=== PATIENT | male | born 1970 | race Caucasian/White ===

== ENCOUNTER → 2017-08-20 | Outpatient (REF) | payer OTHER ==
[~2017-08-20] MED LIST: ACET50TA PO; ASPI81CH PO; DRISDOL PO; METO50TA4 PO; NO HISTORICAL MEDS; OXYC30TA4 PO; PERC7.5T12 PO; PRIN10TA PO; SPIR25TA2 PO; SYNT100T PO; TYLE325T5 PO
== END ==
LOC: M SFHCCLAY 09:55
PROVIDERS: ATTEND Family Medicine
DX: J02.9 Acute pharyngitis, unspecified (principal)

== ENCOUNTER → 2018-06-19 | Outpatient (REF) | payer OTHER ==
[2018-06-19 12:04] LABS: ANION GAP 6 MEQ/L (8-16); BLOOD UREA NITROGEN 12 MG/DL (7-18); CALCIUM LEVEL 8.7 MG/DL (8.5-10.1); CARBON DIOXIDE LEVEL 28 MEQ/L (21-32); CHLORIDE LEVEL 106 MEQ/L (98-107); CREATININE FOR GFR 1.05 MG/DL (0.70-1.30); GLOMERULAR FILTRATION RATE > 60.0 (>60); GLUCOSE, FASTING 93 MG/DL (70-100); POTASSIUM SERUM 4.6 MEQ/L (3.5-5.1); SODIUM LEVEL 140 MEQ/L (136-145)
== END ==
LOC: M SFHCCLAY 08:07
DX: I10 Essential (primary) hypertension (principal)

== ENCOUNTER → 2019-07-14 | Outpatient (CLI) | payer MEDICAID ==
[~2019-07-14] MED LIST changes: -ACET50TA PO; +MAPA500T17 PO
--- NOTE | 2019-07-14 16:14 | REP ---
Chest x-ray: Two views. History: Cough. Chest pain. Low oxygen saturation. Comparison chest x-ray August 20, 2013. Findings: The lungs are symmetrically aerated and clear. Pleural angles are sharp. Right hemidiaphragm is slightly elevated unchanged. Heart is not enlarged. There are degenerative changes in the thoracic spine. Impression: No acute disease. Electronically Signed by Berto Esquivel MD 07/14/2019 04:06 P
== END ==
LOC: M CLY 15:35
PROVIDERS: ATTEND Family Medicine
DX: M51.34 Other intervertebral disc degeneration, thoracic region (principal); R05 Cough; R79.81 Abnormal blood-gas level; R07.1 Chest pain on breathing

== ENCOUNTER → 2019-08-06 | Outpatient (REF) | payer MEDICAID ==
[2019-08-06 12:18] LABS: ALBUMIN 3.9 GM/DL (3.2-5.2); ALT/SGPT 66 U/L (12-78); BILIRUBIN,TOTAL 0.4 MG/DL (0.2-1.0); BLOOD UREA NITROGEN 17 MG/DL (7-18); CARBON DIOXIDE LEVEL 28 MEQ/L (21-32); CHLORIDE LEVEL 108 MEQ/L (98-107); CHOLESTEROL LEVEL 185 MG/DL (<200); CHOLESTEROL RISK RATIO 3.627 (<5); CREATININE FOR GFR 1.07 MG/DL (0.70-1.30); GLOMERULAR FILTRATION RATE > 60.0 (>60); GLUCOSE, FASTING 93 MG/DL (70-100); HDL CHOLESTEROL 51 MG/DL (>40); LDL CHOLESTEROL 121 MG/DL (<100); NON-HDL-C 134 MG/DL; POTASSIUM SERUM 4.7 MEQ/L (3.5-5.1); SODIUM LEVEL 140 MEQ/L (136-145); TOTAL PROTEIN 6.9 GM/DL (6.4-8.2); TRIGLYCERIDES LEVEL 67 MG/DL (<150)
== END ==
LOC: M SFHCCLAY 07:31
PROVIDERS: ATTEND Family Medicine
DX: Z00.00 Encounter for general adult medical examination without abnormal findings (principal); I11.9 Hypertensive heart disease without heart failure; Z13.220 Encounter for screening for lipoid disorders; Z13.1 Encounter for screening for diabetes mellitus

== ENCOUNTER → 2022-11-14 | Outpatient (CLI) | payer OTHER | LOC: M CLY 11:14 | PROVIDERS: ATTEND Nurse Practitioner Family | DX: M54.50 Low back pain, unspecified (principal) ==

== ENCOUNTER → 2022-11-14 | Outpatient (REF) | payer OTHER ==
[2022-11-14 19:15] LABS: THYROID STIMULATING HORMONE 0.699 uIU/ML (0.55-4.78)
[2022-11-14 19:16] LABS: BLOOD UREA NITROGEN 17 MG/DL (9-23); CALCIUM LEVEL 9.3 MG/DL (8.5-10.1); CARBON DIOXIDE LEVEL 29 MMOL/L (20-31); CHLORIDE LEVEL 103 MMOL/L (98-107); CHOLESTEROL LEVEL 191 MG/DL (<200); CHOLESTEROL RISK RATIO 3.68 (<5); CREATININE FOR GFR 0.99 MG/DL (0.70-1.30); FREE T4 1.28 NG/DL (0.89-1.76); GLOMERULAR FILTRATION RATE > 60.0 (>56); GLUCOSE, FASTING 76 MG/DL (60-100); HDL CHOLESTEROL 51.8 MG/DL (>40); LDL CHOLESTEROL 110.8 MG/DL (<100); NON-HDL-C 139 MG/DL; POTASSIUM SERUM 4.6 MMOL/L (3.5-5.1); SODIUM LEVEL 139 MMOL/L (136-145); TRIGLYCERIDES LEVEL 142 MG/DL (<150)
== END ==
LOC: M SFHCCLAY 11:01
PROVIDERS: ATTEND Nurse Practitioner Family
DX: I10 Essential (primary) hypertension (principal); F32.9 Major depressive disorder, single episode, unspecified

== ENCOUNTER → 2024-08-14 | Outpatient (CLI) | payer SELFPAY | LOC: M CLY 09:23 | PROVIDERS: ATTEND Physician Assistant | DX: R06.02 Shortness of breath (principal) ==

== ENCOUNTER → 2024-11-28 | Outpatient (CLI) | payer MEDICAID | LOC: M OUTALCOH 07:57 | PROVIDERS: ATTEND Psychiatry & Neurology Psychiatry | DX: F10.10 Alcohol abuse, uncomplicated (principal) ==

== ENCOUNTER 2024-12-03 16:05 | Outpatient (RCR) | payer MEDICAID | END 2024-12-08 | LOC: M OUTALCOH 16:05 | PROVIDERS: ATTEND Psychiatry & Neurology Psychiatry | DX: F10.10 Alcohol abuse, uncomplicated (principal) ==

== ENCOUNTER 2025-01-01 15:00 | Outpatient (RCR) | payer MEDICAID | END 2025-01-07 | LOC: M OUTALCOH 15:00 | PROVIDERS: ATTEND Psychiatry & Neurology Psychiatry | DX: F10.10 Alcohol abuse, uncomplicated (principal) ==

== ENCOUNTER 2025-06-19 15:26 | Emergency (ER) | payer OTHER ==
[~2025-06-19] VITALS: Ht 182.9 cm; Wt 101.8 kg
[2025-06-19] MEDS ORDERED: OMEP40CA5 (15:36)
[2025-06-19] MEDS ORDERED: LISI10TA22 (15:36)
[2025-06-19] MEDS ORDERED: KAOP262S PO (15:43)
[2025-06-19 16:12] LABS: BASO # 0.0 10^3/uL (0.0-0.2); BASO % 0.5 % (0.0-1.0); EOS # 0.0 10^3/uL (0.0-0.5); EOS % 0.3 % (0.0-3.0); LYMPH # 1.6 10^3/uL (1.5-5.0); LYMPH % 26.2 % (24.0-44.0); MONO # 0.5 10^3/uL (0.0-0.8); MONO % 8.1 % (2.0-8.0); NEUTROPHILS # 4.0 10^3/uL (1.5-8.5); NEUTROPHILS % 64.7 % (36.0-66.0); PLATELET COUNT, AUTOMATED 303 10^3/uL (150-450)
[2025-06-19] MEDS ORDERED: ONDANSETRON 4MG 2ML VIAL IV ONE (16:25)
[2025-06-19 16:47] LABS: CK-MB VALUE MASS 7.1 NG/ML (<3.6)
[2025-06-19] MEDS: SODIUM CHLORIDE 0.9% 1000 ML IV SCH (16:48)
[2025-06-19 16:49] LABS: ALT/SGPT 79.0 U/L (7.0-40); AST/SGOT 45.0 U/L (<34)
[2025-06-19 16:51] LABS: CPK CREATINE PHOSPHOKINASE 316.0 U/L (46-171); MB/CK RELATIVE INDEX 2.24 (< OR =4)
[2025-06-19] MEDS: FAMOTIDINE 20 MG/2 ML VIAL IVP ONE (16:51)
[2025-06-19 17:15] LABS: INR 1.19
[2025-06-19 17:18] LABS: KETONE, URINE AUTO RFX NEGATIVE (NEGATIVE); LEUKOCYTE ESTERASE UR AUTO RFX NEGATIVE (NEGATIVE); NITRITE, URINE AUTO RFX NEGATIVE (NEGATIVE); RBC, URINE AUTO RFX 0 /HPF (0-3); SQUAM EPITHELIAL CELL UR AURFX 0 /HPF (0-6); WBC, URINE AUTO RFX 1 /HPF (0-3)
[2025-06-19] MEDS ORDERED: ISOVUE-370 76% 100 ML VIAL As Ordered ONE (17:23)
[2025-06-19 17:54] LABS: CK-MB VALUE MASS 6.4 NG/ML (<3.6)
[2025-06-19 17:55] LABS: CPK CREATINE PHOSPHOKINASE 298.0 U/L (46-171); MB/CK RELATIVE INDEX 2.14 (< OR =4)
[2025-06-19] MEDS: ACETAMINOPHEN *IV* 1,000 MG in IV 1 EA IV ONE (18:40)
[2025-06-19] MEDS ORDERED: SIMETHICONE 80MG CHEW TAB PO SCH (19:20)
[2025-06-19] MEDS: SIMETHICONE 80MG CHEW TAB PO ONE (19:58)
[2025-06-19] MEDS: DICYCLOMINE INJ 20 MG/2 ML IM ONE (20:48)
[2025-06-19] MEDS: MAALOX 30 ML SUSP *UDC PO ONE (20:48)
[2025-06-19] MEDS: LIDOCAINE VISCOUS 2% SOLN 15 ML UDC PO ONE (20:48)
[2025-06-19] MEDS: HYOSCYAMINE SULFATE 0.125 MG SUBL TABLET PO ONE (20:49)
[2025-06-19 20:51] LABS: CK-MB VALUE MASS 5.0 NG/ML (<3.6)
[2025-06-19 20:55] LABS: CPK CREATINE PHOSPHOKINASE 250.0 U/L (46-171); MB/CK RELATIVE INDEX 2.0 (< OR =4)
[2025-06-19 21:01] VITALS: BP 129/93
[2025-06-19 21:15] VITALS: O2SAT 97
[2025-06-19] MEDS ORDERED: DICY1CAP8 PO (21:15)
[2025-06-19 21:30] VITALS: TEMP 97.2
== END 2025-06-19 21:39 | disposition home or self-care (01) ==
LOC: M ED 15:26
DX: R74.01 Elevation of levels of liver transaminase levels (principal); K29.70 Gastritis, unspecified, without bleeding; I10 Essential (primary) hypertension; R94.31 Abnormal electrocardiogram [ECG] [EKG]; K57.30 Diverticulosis of large intestine without perforation or abscess without bleeding; Z79.899 Other long term (current) drug therapy
CPT/HCPCS: 71045; 74174; 80047; 80076; 81001; 82550; 82553; 83605; 83690; 84484; 85025; 85384; 85610; 85730; 93005; 93041; 94760; 96372; 96374; 96375; 99285; J0131; J0500; J1308; Q9967

== ENCOUNTER → 2025-07-07 | Outpatient (REF) | payer OTHER ==
[~2025-07-07] MED LIST changes: +DICY1CAP8 PO; +KAOP262S PO; +LISI10TA22; +OMEP40CA5
[2025-07-07 12:49] LABS: BASO # 0.1 10^3/uL (0.0-0.2); BASO % 1.2 % (0.0-1.0); EOS # 0.2 10^3/uL (0.0-0.5); EOS % 3.1 % (0.0-3.0); LYMPH # 1.8 10^3/uL (1.5-5.0); LYMPH % 26.8 % (24.0-44.0); MONO # 0.7 10^3/uL (0.0-0.8); MONO % 9.6 % (2.0-8.0); NEUTROPHILS # 4.0 10^3/uL (1.5-8.5); NEUTROPHILS % 58.3 % (36.0-66.0); PLATELET COUNT, AUTOMATED 499 10^3/uL (150-450)
[2025-07-07 13:18] LABS: ALT/SGPT 270.0 U/L (7.0-40); AST/SGOT 112.0 U/L (<34); CALCIUM LEVEL 10.8 MG/DL (8.5-10.1); CARBON DIOXIDE LEVEL 28.0 MMOL/L (20-31); CHLORIDE LEVEL 102.0 MMOL/L (98-107); CREATININE FOR GFR 1.08 MG/DL (0.70-1.30); GLOMERULAR FILTRATION RATE 82.1 (>56); MAGNESIUM LEVEL 1.8 MG/DL (1.8-2.4); POTASSIUM SERUM 6.0 MMOL/L (3.5-5.1); SODIUM LEVEL 140.0 MMOL/L (136-145)
== END ==
LOC: M SFHCCLAY 08:58
PROVIDERS: ATTEND Nurse Practitioner Family
DX: I26.99 Other pulmonary embolism without acute cor pulmonale (principal); R06.83 Snoring; I10 Essential (primary) hypertension

== ENCOUNTER → 2025-07-30 | Outpatient (REF) | payer OTHER ==
[2025-07-30 18:36] LABS: BASO # 0.0 10^3/uL (0.0-0.2); BASO % 0.5 % (0.0-1.0); EOS # 0.1 10^3/uL (0.0-0.5); EOS % 1.7 % (0.0-3.0); LYMPH # 1.9 10^3/uL (1.5-5.0); LYMPH % 24.5 % (24.0-44.0); MONO # 0.7 10^3/uL (0.0-0.8); MONO % 8.8 % (2.0-8.0); NEUTROPHILS # 5.0 10^3/uL (1.5-8.5); NEUTROPHILS % 64.1 % (36.0-66.0); PLATELET COUNT, AUTOMATED 277 10^3/uL (150-450)
[2025-07-30 18:47] LABS: IRON (FE) 102.0 UG/DL (65-175)
[2025-07-30 18:50] LABS: ALT/SGPT 129.0 U/L (7.0-40); AST/SGOT 58.0 U/L (<34); CALCIUM LEVEL 9.4 MG/DL (8.5-10.1); CARBON DIOXIDE LEVEL 30.0 MMOL/L (20-31); CHLORIDE LEVEL 104.0 MMOL/L (98-107); CREATININE FOR GFR 1.01 MG/DL (0.70-1.30); GLOMERULAR FILTRATION RATE 88.9 (>56); POTASSIUM SERUM 5.1 MMOL/L (3.5-5.1); SODIUM LEVEL 143.0 MMOL/L (136-145)
== END ==
LOC: M LABDRAWC 17:40
DX: I10 Essential (primary) hypertension (principal); R06.02 Shortness of breath; I27.20 Pulmonary hypertension, unspecified; D64.9 Anemia, unspecified